=== PATIENT | female | born 1995 | race Caucasian/White ===

== ENCOUNTER 2022-08-08 10:56 | Inpatient (IN) | payer OTHER ==
[~2022-08-08] VITALS: Ht 152.4 cm; Wt 71.2 kg
[2022-08-11] MEDS ORDERED: VITAMIN D310 MC4 (07:52)
[2022-08-11] MEDS ORDERED: PRENATAL + DHA1 EAC1 (07:53)
== END 2022-08-11 10:54 | disposition home or self-care (01) | DRG 807 ==
LOC: EDSTATUS 11:15 → LDR 08-09 19:53 → OB/GYN 08-09 22:10
PROVIDERS: ADMIT Obstetrics & Gynecology; ATTEND Obstetrics & Gynecology
PROC: 10E0XZZ Delivery of Products of Conception, External Approach (ICD-10-PCS; principal; 2022-08-09)
PROC: 4A1HXCZ Monitoring of Products of Conception, Cardiac Rate, External Approach (ICD-10-PCS; 2022-08-09)
DX: O80 Encounter for full-term uncomplicated delivery (principal); Z37.0 Single live birth; Z3A.38 38 weeks gestation of pregnancy; Z20.822 Contact with and (suspected) exposure to COVID-19